=== PATIENT | female | born 1965 | race Caucasian/White ===

== ENCOUNTER 2017-11-21 14:00 | Inpatient (IN) | payer OTHER ==
[~2017-11-21] VITALS: Ht 167.6 cm; Wt 51.8 kg
[2017-11-21 14:49] LABS: BASOPHILS # (AUTO) 0.02 x10^3/uL (0-0.1); BASOPHILS % (AUTO) 0 % (0-1); EOSINOPHILS # (AUTO) 0.21 x10^3/uL (0-0.4); EOSINOPHILS % (AUTO) 3 % (1-7); LYMPHOCYTES # (AUTO) 2.19 x10^3/uL (1-3.4); LYMPHOCYTES % (AUTO) 34 % (22-44); MD NO; MEAN CORPUSCULAR HEMOGLOBIN 29.9 pg (27.0-34.8); MEAN CORPUSCULAR HGB CONC 32.9 g/dL (32.4-35.8); MEAN CORPUSCULAR VOLUME 90.9 fL (80-100); MEAN PLATELET VOLUME 7.4 fL (7.4-10.4); MONOCYTES % (AUTO) 3 % (2-9); NEUTROPHILS # (AUTO) 3.88 x10^3/uL (1.8-6.8); NEUTROPHILS % (AUTO) 60 % (42-75); PLATELET COUNT 441 x10^3/uL (130-400); RED BLOOD COUNT 4.26 x10^6/uL (3.82-5.3)
[2017-11-21] MEDS ORDERED: SODIUM CHLORIDE 0.9% 1,000ML IVBOLUS ONE (15:00)
[2017-11-21 15:02] LABS: ALBUMIN 2.3 g/dL (3.4-5.0); ANION GAP 11 mmol/L (5-15); CALCIUM 9.3 mg/dL (8.5-10.1); CHLORIDE 107 mmol/L (98-107); CREATININE 0.61 mg/dL (0.55-1.02)
[2017-11-21 15:06] LABS: TROPONIN I < 0.015 ng/mL (0.000-0.045)
[2017-11-21 15:23] LABS: INTERNATIONAL NORMALIZED RATIO 0.99 (0.93-1.1); PROTHROMBIN TIME 10.3 Seconds (9.6-11.5)
[2017-11-21] MEDS ORDERED: FENTANYL PF 100 MCG/2ML IVPush PRN (15:30)
[2017-11-21] MEDS ORDERED: HEPARIN 5,000 UNITS/ML, 1ML IV ONE (15:30)
[2017-11-21] MEDS ORDERED: methotrexate (15:33)
[2017-11-21] MEDS ORDERED: FOLI-17 PO (15:33)
[2017-11-21] MEDS ORDERED: CYCL1DRO EACHEYE (15:33)
[2017-11-21] MEDS ORDERED: RANI150C PO (15:33)
[2017-11-21] MEDS ORDERED: DIFL5DRO EACHEYE (15:33)
[2017-11-21] MEDS ORDERED: LABETALOL 5MG/ML, 20ML IVPush PRN (16:00)
[2017-11-21] MEDS ORDERED: ENALAPRILAT 1.25 MG/ML, 2ML IVPush PRN (16:00)
[2017-11-21] MEDS ORDERED: BISACODYL 10 MG SUPP PR PRN (16:00)
[2017-11-21] MEDS ORDERED: ONDANSETRON ODT 4 MG PO PRN (16:00)
[2017-11-21] MEDS ORDERED: ONDANSETRON 2MG/ML, 2ML IVPush PRN (16:00)
[2017-11-21] MEDS ORDERED: DOCUSATE 100 MG CAPSULE PO PRN (16:00)
[2017-11-21] MEDS ORDERED: FENTANYL PF 100 MCG/2ML ONE (16:06)
[2017-11-21] MEDS ORDERED: HEPARIN 5,000 UNITS/ML, 1ML ONE (16:06)
[2017-11-21] MEDS: HEPARIN 25,000 UNITS/500ML PMX 500 ML IV PRN (16:14)
[2017-11-21] MEDS ORDERED: OMNIPAQUE 350 MG/ML, 100ML BOTTLE ONE (16:38)
[2017-11-21 17:47] VITALS: BP 110/72
[2017-11-21] MEDS: SODIUM CHLORIDE 0.9% 1,000 ML IV SCH (18:33)
[2017-11-21 19:05] VITALS: BP 112/75
[2017-11-21] MEDS: FAMOTIDINE 20 MG TABLET PO SCH (21:34)
[2017-11-21 22:09] VITALS: BP 161/72
[2017-11-21] MEDS: HEPARIN 5,000 UNITS/ML, 1ML IV PRN (23:58)
[2017-11-22] MEDS: HEPARIN 25,000 UNITS/500ML PMX 500 ML IV PRN ×2 (00:01→07:14)
[2017-11-22 00:30] VITALS: BP 108/69
[2017-11-22 01:44] LABS: MICROSCOPIC INDICATED
[2017-11-22 01:55] LABS: CULTURE INDICATED? NO
[2017-11-22] MEDS: SODIUM CHLORIDE 0.9% 1,000 ML IV SCH ×2 (06:18→20:02)
[2017-11-22 06:29] LABS: CHLORIDE 113 mmol/L (98-107)
[2017-11-22 06:30] LABS: BASOPHILS # (AUTO) 0.02 x10^3/uL (0-0.1); BASOPHILS % (AUTO) 0 % (0-1); EOSINOPHILS # (AUTO) 0.41 x10^3/uL (0-0.4); EOSINOPHILS % (AUTO) 8 % (1-7); INTERNATIONAL NORMALIZED RATIO 1.02 (0.93-1.1); LYMPHOCYTES # (AUTO) 2.37 x10^3/uL (1-3.4); LYMPHOCYTES % (AUTO) 48 % (22-44); MD NO; MEAN CORPUSCULAR HEMOGLOBIN 30.5 pg (27.0-34.8); MEAN CORPUSCULAR HGB CONC 33.7 g/dL (32.4-35.8); MEAN CORPUSCULAR VOLUME 90.4 fL (80-100); MEAN PLATELET VOLUME 7.1 fL (7.4-10.4); MONOCYTES # (AUTO) 0.12 x10^3/uL (0.2-0.8); MONOCYTES % (AUTO) 3 % (2-9); NEUTROPHILS % (AUTO) 41 % (42-75); PLATELET COUNT 356 x10^3/uL (130-400); PROTHROMBIN TIME 10.6 Seconds (9.6-11.5); RED BLOOD COUNT 3.22 x10^6/uL (3.82-5.3); RED CELL DISTRIBUTION WIDTH 16.1 % (9.6-15.2)
[2017-11-22 06:48] LABS: ALANINE AMINOTRANSFERASE 7 U/L (12-78); ALBUMIN 1.7 g/dL (3.4-5.0); ALKALINE PHOSPHATASE 45 U/L (45-117); ANION GAP 11 mmol/L (5-15); BILIRUBIN,TOTAL 0.4 mg/dL (0.2-1.0); CHOL/HDL RATIO 3.1; CHOLESTEROL, TOTAL 132 mg/dL (140-239); HDL CHOL % 32 % (28-40); HDL CHOLESTEROL (DIRECT) 42 mg/dL (40-60); LDL CHOLESTEROL,CALCULATED 59 mg/dL (54-169); LDL/HDL RATIO 1.4 (0.5-3.0); TOTAL PROTEIN 6.3 g/dL (6.4-8.2); TRIGLYCERIDES 155 mg/dL (50-200); VLDL CHOLESTEROL 31 mg/dL (0-25)
[2017-11-22] MEDS: HEPARIN 5,000 UNITS/ML, 1ML IV PRN (07:12)
[2017-11-22] MEDS: SENNA/DOCUSATE TABLET PO SCH (07:43)
[2017-11-22] MEDS: FAMOTIDINE 20 MG TABLET PO SCH ×4 (07:43→21:00)
[2017-11-22] MEDS: DIFLUPREDNATE EACHEYE SCH (07:43)
[2017-11-22] MEDS: TEMPLATE NON-FORMULARY MED. (Cyclosporine (Restasis) 1 DROP) EACHEYE SCH (07:44)
[2017-11-22 08:24] VITALS: BP 104/66
[2017-11-22] MEDS: FLUTICASONE NASAL SPRAY 16GM NAS SCH ×2 (09:30→21:00)
[2017-11-22] MEDS: APIXABAN 5 MG TABLET PO SCH ×2 (12:31→21:11)
[2017-11-22 13:40] VITALS: BP 105/63
[2017-11-22 19:52] VITALS: BP 112/70
[2017-11-22] MEDS: ACETAMINOPHEN 325 MG TABLET PO PRN (21:14)
[2017-11-23 02:10] VITALS: BP 112/64
[2017-11-23 07:25] VITALS: BP 100/62
[2017-11-23 08:44] LABS: ANION GAP 11 mmol/L (5-15); CALCIUM 7.5 mg/dL (8.5-10.1); CHLORIDE 112 mmol/L (98-107); CREATININE 0.23 mg/dL (0.55-1.02)
[2017-11-23] MEDS: FLUTICASONE NASAL SPRAY 16GM NAS SCH ×2 (09:00→21:00)
[2017-11-23] MEDS: FAMOTIDINE 20 MG TABLET PO SCH ×2 (09:00→21:00)
[2017-11-23] MEDS: DIFLUPREDNATE EACHEYE SCH (09:00)
[2017-11-23] MEDS: TEMPLATE NON-FORMULARY MED. (Cyclosporine (Restasis) 1 DROP) EACHEYE SCH (09:00)
[2017-11-23] MEDS: SODIUM CHLORIDE 0.9% 1,000 ML IV SCH ×2 (10:29→23:06)
[2017-11-23] MEDS: APIXABAN 5 MG TABLET PO SCH ×2 (10:29→21:16)
[2017-11-23] MEDS: POTASSIUM CHLORIDE 20 MEQ TAB.ER.PRT PO SCH ×2 (10:32→17:00)
[2017-11-23] MEDS: SENNA/DOCUSATE TABLET PO SCH (10:32)
[2017-11-23 16:42] VITALS: BP 111/63
[2017-11-23] MEDS: ACETAMINOPHEN 325 MG TABLET PO PRN (19:41)
[2017-11-23 19:47] VITALS: BP 109/58
[2017-11-24 03:02] VITALS: BP 117/76
[2017-11-24 07:05] VITALS: BP 111/71
[2017-11-24] MEDS: POTASSIUM CHLORIDE 20 MEQ TAB.ER.PRT PO SCH ×3 (09:00→18:16)
[2017-11-24] MEDS: FLUTICASONE NASAL SPRAY 16GM NAS SCH ×2 (09:00→20:37)
[2017-11-24] MEDS: DIFLUPREDNATE EACHEYE SCH (09:00)
[2017-11-24] MEDS: SENNA/DOCUSATE TABLET PO SCH (09:00)
[2017-11-24] MEDS: FAMOTIDINE 20 MG TABLET PO SCH ×2 (09:00→20:37)
[2017-11-24] MEDS: TEMPLATE NON-FORMULARY MED. (Cyclosporine (Restasis) 1 DROP) EACHEYE SCH (09:00)
[2017-11-24] MEDS: APIXABAN 5 MG TABLET PO SCH ×2 (09:02→20:35)
[2017-11-24] MEDS: SODIUM CHLORIDE 0.9% 1,000 ML IV SCH (12:46)
[2017-11-24 14:40] VITALS: BP 114/72
[2017-11-24] MEDS: CALCIUM CARBONATE 500 MG TAB.CHEW PO PRN (15:26)
[2017-11-24 20:28] VITALS: BP 116/70
[2017-11-25] MEDS: SODIUM CHLORIDE 0.9% 1,000 ML IV SCH ×2 (01:52→15:31)
[2017-11-25 02:56] VITALS: BP 100/66
[2017-11-25 07:00] VITALS: BP 108/69
[2017-11-25] MEDS: TEMPLATE NON-FORMULARY MED. (Cyclosporine (Restasis) 1 DROP) EACHEYE SCH (09:00)
[2017-11-25] MEDS: SENNA/DOCUSATE TABLET PO SCH (09:00)
[2017-11-25] MEDS: DIFLUPREDNATE EACHEYE SCH (09:00)
[2017-11-25] MEDS: FAMOTIDINE 20 MG TABLET PO SCH ×2 (09:00→19:46)
[2017-11-25] MEDS: FLUTICASONE NASAL SPRAY 16GM NAS SCH ×2 (09:00→19:52)
[2017-11-25] MEDS: APIXABAN 5 MG TABLET PO SCH (09:03)
[2017-11-25] MEDS: POTASSIUM CHLORIDE 20 MEQ TAB.ER.PRT PO SCH ×3 (09:04→17:00)
[2017-11-25 10:40] LABS: BASOPHILS # (AUTO) 0.01 x10^3/uL (0-0.1); BASOPHILS % (AUTO) 0 % (0-1); EOSINOPHILS % (AUTO) 6 % (1-7); LYMPHOCYTES # (AUTO) 1.99 x10^3/uL (1-3.4); LYMPHOCYTES % (AUTO) 42 % (22-44); MD NO; MEAN CORPUSCULAR HEMOGLOBIN 29.7 pg (27.0-34.8); MEAN CORPUSCULAR HGB CONC 33.2 g/dL (32.4-35.8); MEAN CORPUSCULAR VOLUME 89.6 fL (80-100); MEAN PLATELET VOLUME 6.9 fL (7.4-10.4); MONOCYTES # (AUTO) 0.13 x10^3/uL (0.2-0.8); MONOCYTES % (AUTO) 3 % (2-9); NEUTROPHILS # (AUTO) 2.35 x10^3/uL (1.8-6.8); NEUTROPHILS % (AUTO) 49 % (42-75); PLATELET COUNT 470 x10^3/uL (130-400); RED BLOOD COUNT 3.59 x10^6/uL (3.82-5.3); RED CELL DISTRIBUTION WIDTH 15.5 % (9.6-15.2)
[2017-11-25] MEDS ORDERED: APIX5TAB PO (11:01)
[2017-11-25] MEDS: CALCIUM CARBONATE 500 MG TAB.CHEW PO PRN (14:18)
[2017-11-25 14:22] VITALS: BP 115/74
[2017-11-25] MEDS: HYDROcodone/APAP 5/325 TABLET PO PRN (15:19)
[2017-11-25 16:07] LABS: ALBUMIN 1.8 g/dL (3.4-5.0); ANION GAP 8 mmol/L (5-15); CALCIUM 7.9 mg/dL (8.5-10.1); CHLORIDE 106 mmol/L (98-107)
[2017-11-25 16:12] LABS: ALANINE AMINOTRANSFERASE 11 U/L (12-78); ALKALINE PHOSPHATASE 67 U/L (45-117); BILIRUBIN,TOTAL 0.5 mg/dL (0.2-1.0); CREATININE 0.31 mg/dL (0.55-1.02); TOTAL PROTEIN 6.4 g/dL (6.4-8.2); TROPONIN I < 0.015 ng/mL (0.000-0.045)
[2017-11-25] MEDS ORDERED: MORPHINE SULFATE 4 MG/ML, 1ML IVPush PRN (17:00)
[2017-11-25] MEDS: ENOXAPARIN 60 MG/0.6 ML SQ SCH (19:53)
[2017-11-25 20:56] VITALS: BP 98/71
[2017-11-25] MEDS ORDERED: OMNIPAQUE 350 MG/ML, 100ML BOTTLE ONE (20:59)
[2017-11-26 02:00] VITALS: BP 103/67
[2017-11-26 05:35] LABS: BASOPHILS # (AUTO) 0.01 x10^3/uL (0-0.1); BASOPHILS % (AUTO) 0 % (0-1); EOSINOPHILS # (AUTO) 0.36 x10^3/uL (0-0.4); EOSINOPHILS % (AUTO) 8 % (1-7); LYMPHOCYTES % (AUTO) 47 % (22-44); MD NO; MEAN CORPUSCULAR HEMOGLOBIN 30.6 pg (27.0-34.8); MEAN CORPUSCULAR HGB CONC 33.5 g/dL (32.4-35.8); MEAN CORPUSCULAR VOLUME 91.1 fL (80-100); MEAN PLATELET VOLUME 7.4 fL (7.4-10.4); MONOCYTES # (AUTO) 0.12 x10^3/uL (0.2-0.8); MONOCYTES % (AUTO) 3 % (2-9); NEUTROPHILS # (AUTO) 1.95 x10^3/uL (1.8-6.8); NEUTROPHILS % (AUTO) 42 % (42-75); PLATELET COUNT 414 x10^3/uL (130-400); RED BLOOD COUNT 3.13 x10^6/uL (3.82-5.3)
[2017-11-26 05:47] LABS: ALBUMIN 1.5 g/dL (3.4-5.0); ANION GAP 10 mmol/L (5-15); CALCIUM 7.9 mg/dL (8.5-10.1); CHLORIDE 108 mmol/L (98-107)
[2017-11-26 05:57] LABS: ALANINE AMINOTRANSFERASE 29 U/L (12-78); ALKALINE PHOSPHATASE 100 U/L (45-117); BILIRUBIN,TOTAL 0.4 mg/dL (0.2-1.0); CREATININE 0.26 mg/dL (0.55-1.02); FREE T4 (FREE THYROXINE) 1.28 ng/dL (0.76-1.46); TOTAL PROTEIN 5.7 g/dL (6.4-8.2)
[2017-11-26 06:50] VITALS: BP 103/73
[2017-11-26] MEDS: FAMOTIDINE 20 MG TABLET PO SCH ×2 (08:29→16:30)
[2017-11-26] MEDS: SENNA/DOCUSATE TABLET PO SCH (08:30)
[2017-11-26] MEDS: FLUTICASONE NASAL SPRAY 16GM NAS SCH ×2 (08:41→21:00)
[2017-11-26] MEDS: ENOXAPARIN 60 MG/0.6 ML SQ SCH (08:42)
[2017-11-26] MEDS: DIFLUPREDNATE EACHEYE SCH (08:44)
[2017-11-26] MEDS: TEMPLATE NON-FORMULARY MED. (Cyclosporine (Restasis) 1 DROP) EACHEYE SCH (08:44)
[2017-11-26] MEDS: SODIUM CHLORIDE 0.9% 1,000 ML IV SCH ×2 (12:17→18:40)
[2017-11-26] MEDS ORDERED: SODIUM CHLORIDE 0.9% 1,000 ML IV SCH (16:00)
[2017-11-26 16:11] VITALS: BP 124/82
[2017-11-26 19:40] VITALS: BP 118/76
[2017-11-26] MEDS: CALCIUM CARBONATE 500 MG TAB.CHEW PO PRN (21:36)
[2017-11-26] MEDS: APIXABAN 5 MG TABLET PO SCH (21:38)
[2017-11-27] MEDS: SODIUM CHLORIDE 0.9% 1,000 ML IV SCH ×2 (01:23→07:30)
[2017-11-27 01:40] VITALS: BP 111/72
[2017-11-27] MEDS: HYDROcodone/APAP 5/325 TABLET PO PRN (02:59)
[2017-11-27] MEDS: FLUTICASONE NASAL SPRAY 16GM NAS SCH (08:51)
[2017-11-27] MEDS: APIXABAN 5 MG TABLET PO SCH (09:00)
[2017-11-27] MEDS: DIFLUPREDNATE EACHEYE SCH (09:00)
[2017-11-27] MEDS: TEMPLATE NON-FORMULARY MED. (Cyclosporine (Restasis) 1 DROP) EACHEYE SCH (09:00)
[2017-11-27] MEDS: SENNA/DOCUSATE TABLET PO SCH (09:00)
[2017-11-27] MEDS: FAMOTIDINE 20 MG TABLET PO SCH (09:00)
[2017-11-27 10:44] VITALS: BP 109/71
[2017-11-27] MEDS ORDERED: APIX5TAB PO (14:22)
[2017-12-03] MEDS ORDERED: APIXABAN 5 MG TABLET PO SCH (21:00)
== END 2017-11-27 16:00 | disposition home health service (06) | DRG 299 ==
LOC: ED 15:59 → EDIP 16:00 → ED 16:07 → 3NE 17:43
PROVIDERS: ADMIT Internal Medicine Pulmonary Disease; ATTEND Internal Medicine Pulmonary Disease
DX: I82.411 Acute embolism and thrombosis of right femoral vein (principal); K85.10 Biliary acute pancreatitis without necrosis or infection; I82.431 Acute embolism and thrombosis of right popliteal vein; R13.10 Dysphagia, unspecified; I10 Essential (primary) hypertension; I82.4Z1 Acute embolism and thrombosis of unspecified deep veins of right distal lower extremity; K21.9 Gastro-esophageal reflux disease without esophagitis; K80.20 Calculus of gallbladder without cholecystitis without obstruction; M06.9 Rheumatoid arthritis, unspecified; M24.541 Contracture, right hand; M24.542 Contracture, left hand; R00.0 Tachycardia, unspecified; R53.81 Other malaise; R63.4 Abnormal weight loss; R63.3 Feeding difficulties; Z79.01 Long term (current) use of anticoagulants; Z82.49 Family history of ischemic heart disease and other diseases of the circulatory system; Z83.3 Family history of diabetes mellitus; Z86.718 Personal history of other venous thrombosis and embolism; Z87.891 Personal history of nicotine dependence; Z99.3 Dependence on wheelchair; Z88.1 Allergy status to other antibiotic agents
CPT/HCPCS: 36415; 71045; 71275; 74177; 76700; 80048; 80053; 80061; 81001; 82040; 83690; 83880; 84439; 84443; 84484; 85025; 85520; 85610; 85730; 93005; 96361; 96374; 96375; J1644; J1650; J3010; Q9967; J7030

== ENCOUNTER → 2017-12-30 | Outpatient (CLI) | payer OTHER ==
[~2017-12-30] MED LIST: APIX5TAB PO; CYCL1DRO EACHEYE; DIFL5DRO EACHEYE; FOLI-17 PO; RANI150C PO; methotrexate
== END | disposition home or self-care (01) ==
LOC: RAD 08:31
DX: K80.20 Calculus of gallbladder without cholecystitis without obstruction (principal); K85.90 Acute pancreatitis without necrosis or infection, unspecified
CPT/HCPCS: 74181

== ENCOUNTER → 2018-01-29 | Outpatient (CLI) | payer OTHER | END | disposition home or self-care (01) | LOC: CFH 15:07 | PROVIDERS: ATTEND Family Medicine | DX: I82.401 Acute embolism and thrombosis of unspecified deep veins of right lower extremity (principal); M79.604 Pain in right leg; R60.9 Edema, unspecified ==

== ENCOUNTER → 2018-03-03 | Outpatient (CLI) | payer OTHER | END | disposition home or self-care (01) | LOC: CFH 15:08 | PROVIDERS: ATTEND Family Medicine | DX: I82.401 Acute embolism and thrombosis of unspecified deep veins of right lower extremity (principal) ==